=== PATIENT | female | born 1990 | race African-American/Black ===

== ENCOUNTER 2021-07-12 09:28 | Emergency (ER) | payer SELFPAY ==
[2021-07-12] MEDS ORDERED: Ketorolac Tromethamine 30 MG/ML VIAL ONE (10:26)
== END 2021-07-12 11:23 | disposition home or self-care (01) ==
LOC: CSHERS 09:28
DX: M25.511 Pain in right shoulder (principal); F17.290 Nicotine dependence, other tobacco product, uncomplicated
CPT/HCPCS: 96372; J1885